=== PATIENT | female | born 1955 | race Caucasian/White ===

== ENCOUNTER 2022-09-08 08:28 | Outpatient (CLI) | payer MEDICARE, BC, SELFPAY ==
--- NOTE | 2022-09-08 09:30 | W.ANESCHARGE ---
Anesthesia Charges Start Date/Time Anesthesia Start Date: 09/08/22 Anesthesia Start Time: 09:45 Stop Date/Time Anesthesia Stop Date: 09/08/22 Anesthesia Stop Time: 10:15
--- NOTE | 2022-09-08 10:17 | W.ANESCHARGE ---
Anesthesia Charges Start Date/Time Anesthesia Start Date: 09/08/22 Anesthesia Start Time: 09:45 Stop Date/Time Anesthesia Stop Date: 09/08/22 Anesthesia Stop Time: 10:15
== END 2022-09-08 08:29 | disposition home or self-care (01) ==
LOC: OP CLINIC 08:29
PROVIDERS: PCP Student in an Organized Health Care Education/Training Program; Visit Provider Internal Medicine Gastroenterology
DX: Z12.11 Encounter for screening for malignant neoplasm of colon (principal); Z86.010 Personal history of colon polyps
CPT/HCPCS: 45378; 811; 812; J2405; J2704

== ENCOUNTER 2022-12-21 00:57 | Outpatient (CLI) | payer MEDICARE, BC, SELFPAY | END 2022-12-21 00:58 | disposition home or self-care (01) | LOC: AMB 12-26 10:20 | PROVIDERS: PCP Student in an Organized Health Care Education/Training Program; Visit Provider Family Medicine | DX: R53.1 Weakness (principal); K92.1 Melena; R55 Syncope and collapse | CPT/HCPCS: A0425; A0427 ==

== ENCOUNTER 2023-12-12 12:37 | Outpatient (CLI) | payer MEDICARE, BC, SELFPAY | END 2023-12-12 12:38 | disposition home or self-care (01) | LOC: AMB 12-15 02:30 | PROVIDERS: PCP Student in an Organized Health Care Education/Training Program; Visit Provider Emergency Medicine | DX: R42 Dizziness and giddiness (principal); R11.2 Nausea with vomiting, unspecified | CPT/HCPCS: A0425; A0427 ==

== ENCOUNTER 2023-12-12 13:28 | Emergency (ER) | payer MEDICARE, BC, SELFPAY ==
[2023-12-12] VITALS (13 sets, daily range): BP systolic 144–169; BP diastolic 72–88; PULSE 60–72; RESP 16–20; TEMP 35.8; O2SAT 97–100; BMI 36.6
--- NOTE | 2023-12-12 13:55 | ED.NAVMDI ---
HPI - Nausea/Vomiting/Diarrhea General Chief complaint: Nausea/Vomiting Stated complaint: Vomiting Time Seen by Provider: 12/12/23 13:29 History of Present Illness HPI Narrative: This 68-year-old female comes in by ambulance because of some nausea with vomiting and feeling lightheaded. These symptoms started today prior to arrival. She states that she felt this way last year when her hemoglobin was low apparently. She did have a colonoscopy at that time and also has had a hysterectomy. She states there was no evidence of colon cancer but did have abnormal cells in her uterus. She does have a history of diabetes. She does not report any pain. Related Data Home Medications ?Medication ?Instructions ?Recorded ?Confirmed amlodipine 5 mg tablet 5 mg PO DAILY 12/12/23 12/12/23 atorvastatin 20 mg tablet 20 mg PO DAILY 12/12/23 12/12/23 glipizide 10 mg tablet, extended 10 mg PO BID 12/12/23 12/12/23 release 24 hr insulin glargine 100 unit/mL (3 16 unit subcut BID 12/12/23 12/12/23 mL) subcutaneous pen (Lantus Solostar U-100 Insulin) iron 12/12/23 omeprazole 20 mg capsule,delayed 20 mg PO DAILY 12/12/23 12/12/23 release paroxetine HCl 10 mg tablet 10 mg PO DAILY 12/12/23 12/12/23 semaglutide 0.25 mg or 0.5 mg (2 0.5 mg subcut 12/12/23 mg/3 mL) subcutaneous pen injector (Ozempic) Previous Rx's ?Medication ?Instructions ?Recorded ondansetron HCl 4 mg tablet 4 mg PO Q6H #10 tabs 12/12/23 Allergies Allergy/AdvReac Type Severity Reaction Status Date / Time azithromycin Allergy Verified 09/08/22 11:08 fentanyl Allergy Verified 09/08/22 11:08 metformin Allergy Verified 09/08/22 11:08 aspirin AdvReac Verified 09/08/22 11:08 Review of Systems Status of ROS: Reports: 10 or more systems reviewed and unremarkable except as noted in History and below Narrative: Constitutional: No fevers, no weight gain or loss. Eyes: No discharge. No vision changes. HENT: No congestion, no sore throat, no ear pain. Cardiovascular: No chest pain, no palpitations. Respiratory: No shortness of breath, no wheezes, no cough. Gastrointestinal: No abdominal pain, no diarrhea. She reports nausea with vomiting. Genitourinary: No dysuria, no hematuria. Musculoskeletal: Normal range of motion. Skin: No rashes, no pruritis. Neurological: No dizziness, weakness, sensory change, speech change. Endo/Heme/Allergies: No bruising or bleeding. No polydipsia. Pysch: no suicidality, no anxiety, no insomnia. All other systems reviewed and are negative. Exam Narrative: Exam Narrative: Constitutional: Well-developed, well-nourished, no acute distress. HEENT: Normocephalic, atraumatic. Neck: Normal range of motion. Nontender. Supple. Heart: Regular. No murmurs. Normal rate. Intact distal pulses. Lungs: Clear to auscultation. No chest discomfort. No wheezes, rhonchi, or rales. Abdomen: Normal bowel sounds. Nontender. No rebound tenderness. Genitalia: Deferred. Back: No midline tenderness. Normal range of motion. Extremities: Normal range of motion. No injury. Skin: Intact. No rash. Warm. No erythema or pallor. Neurologic: No altered sensation. No weakness. Alert and oriented. Psychiatric: No suicidality. No anxiety or depression. No insomnia. Nursing notes and vitals signs are reviewed. Const: Vital Signs, click to edit/add: Vital Signs - 24 hr 12/12/23 13:34 12/12/23 14:31 12/12/23 14:32 Temperature 96.5 F L Pulse Rate 60 60 Pulse Rate [Pulse Oximeter] 67 Respiratory Rate 20 16 Blood Pressure 149/83 H Blood Pressure [Ri ght Upper Arm] 144/72 H Pulse Oximetry 98 98 98 Oxygen Delivery Me thod Room Air Room Air 12/12/23 14:45 12/12/23 15:00 12/12/23 15:01 Temperature Pulse Rate 63 65 64 Pulse Rate [Pulse Oximeter] Respiratory Rate 16 Blood Pressure 159/80 H Blood Pressure [Ri ght Upper Arm] Pulse Oximetry 98 100 99 Oxygen Delivery Me thod Room Air 12/12/23 15:15 12/12/23 15:30 12/12/23 15:31 Temperature Pulse Rate 62 68 67 Pulse Rate [Pulse Oximeter] Respiratory Rate 16 Blood Pressure 162/88 H Blood Pressure [Ri ght Upper Arm] Pulse Oximetry 98 98 99 Oxygen Delivery Me thod Room Air 12/12/23 15:45 12/12/23 16:00 12/12/23 16:02 Temperature Pulse Rate 72 70 71 Pulse Rate [Pulse Oximeter] Respiratory Rate 16 Blood Pressure 169/87 H Blood Pressure [Ri ght Upper Arm] Pulse Oximetry 99 97 99 Oxygen Delivery Me thod Room Air 12/12/23 16:15 Temperature Pulse Rate 68 Pulse Rate [Pulse Oximeter] Respiratory Rate Blood Pressure Blood Pressure [Ri t Upper Arm] Pulse Oximetry 98 Oxygen Delivery Me thod Course Vital Signs Vital signs: Initial Vital Signs Temperature 96.5 F L 12/12/23 13:34 Temperature Source Temporal Artery Scan 12/12/23 13:34 Pulse Rate 67 12/12/23 13:34 Respiratory Rate 20 12/12/23 13:34 Blood Pressure 144/72 H 12/12/23 13:34 Blood Pressure Mean 96 12/12/23 13:34 Blood Pressure Position Supine 12/12/23 13:34 Pulse Oximetry 98 12/12/23 13:34 Oxygen Delivery Method Room Air 12/12/23 13:34 Vital Signs Temperature 96.5 F L 12/12/23 13:34 Pulse Rate 67 12/12/23 13:34 Respiratory Rate 20 12/12/23 13:34 Blood Pressure 144/72 H 12/12/23 13:34 Pulse Oximetry 98 12/12/23 13:34 Oxygen Delivery Method Room Air 12/12/23 13:34 Temperature 96.5 F L 12/12/23 13:34 Pulse Rate 68 12/12/23 16:15 Respiratory Rate 16 12/12/23 16:02 Blood Pressure 169/87 H 12/12/23 16:02 Pulse Oximetry 98 12/12/23 16:15 Oxygen Delivery Method Room Air 12/12/23 16:02 Medications Administered Medications: Discontinued Medications Generic Name Dose Route Start Last Admin Trade Name Freq PRN Reason Stop Dose Admin Sodium Chloride 1,000 mls @ 1,000 mls/hr 12/12/23 14:00 12/12/23 15:20 0.9 % Sodium Chloride 1000 Ml IV 12/12/23 14:59 Infused .Q1H [facility] MDM - Nausea/Vomiting/Diarrhea MDM Narrative Medical decision making narrative: This patient comes in with report of some lightheadedness with nausea and vomiting. An IV was established where she received a L of normal saline intravenously. She had received 8 mg of Zofran intravenously prior to arrival. She states that she is feeling significantly better with these treatments. Labs are acquired and these returned with reassuring findings. Her hemoglobin is in normal range. Her white count is around 11,000. Her vital signs have remained stable and normal. Upon completing the IV fluids the patient was able to get up and ambulate and is okay to be discharged home. Lab Data Labs: Lab Results 12/12/23 Range/Units 14:05 WBC 11.71 H (4.50-11.00) K/uL RBC 4.57 (4.00-5.20) m/uL Hgb 13.6 (12.0-16.0) gm/dL Hct 41.9 (33.0-51.0) % MCV 92 (80-100) fL MCH 30 (26-34) pg MCHC 33 (32-36) gm/dL RDW Coeff of Chon 13.1 (11.5-15.5) % Plt Count 267 (140-440) K/uL Neut % (Auto) 78.8 H (42.0-72.0) % Lymph % (Auto) 13.7 L (20-44) % Haines % (Auto) 6.0 (0.0-11.0) % Eos % (Auto) 0.9 (0.0-7.0) % Baso % (Auto) 0.3 (0.0-3.0) % Neut # (Auto) 9.20 H (1.7-7.0) K/uL Lymph # (Auto) 1.60 (0.90-2.90) K/uL Haines # (Auto) 0.70 (0.00-0.90) K/UL Eos # (Auto) 0.10 (0.00-0.50) K/uL Baso # (Auto) 0.00 (0.00-0.30) K/uL Abs Immat Gran (auto) 0.00 (0.00-0.30) K/uL Imm/Tot Granulo (auto) 0.3 % Sodium 138 (135-149) mmol/L Potassium 4.4 (3.6-5.1) mmol/L Chloride 106 (96-114) mmol/L Carbon Dioxide 24 (20-32) mmol/L Anion Gap 8 (7-15) mEq/L BUN 16 (7-30) mg/dL Creatinine 0.7 (0.5-1.5) mg/dL Estimated Creat Clear 41.40 Estimated GFR 93 ml/min Glucose 184 H (60-115) mg/dL Calcium 9.2 (8.4-10.6) mg/dL POC Troponin I 0.00 L (0.01-0.04) ng/ml ECG Data Attestation: I personally reviewed and interpreted this ECG as follows: Interpretation: Normal sinus rhythm. Rate is 63 beats per minute. There are no ST or T-wave abnormalities. Discharge Plan Discharge Clinical Impression: Gastroenteritis Patient Disposition: Home w/ Parent or Adult Condition: Improved Additional Instructions: Take medicine for nausea as needed and directed. Increase diet and activity as tolerated. Follow up with MD or return if worsening. Prescriptions: New ondansetron HCl 4 mg tablet 4 mg PO Q6H Qty: 10 0RF No Action paroxetine HCl 10 mg tablet 10 mg PO DAILY atorvastatin 20 mg tablet 20 mg PO DAILY glipizide 10 mg tablet extended release 24hr 10 mg PO BID amlodipine 5 mg tablet 5 mg PO DAILY omeprazole 20 mg capsule,delayed release(DR/EC) 20 mg PO DAILY insulin glargine [Lantus Solostar U-100 Insulin] 100 unit/mL (3 mL) insulin pen 16 unit subcut BID Ozempic 0.25 mg or 0.5 mg (2 mg/3 mL) pen injector 0.5 mg subcut iron Follow Up/Referrals: Lyndsay Holland PA-C [Primary Care Provider] - [facility]one [facility]
[2023-12-12 14:10] LABS: Basophils Percent Auto 0.3 % (0.0-3.0); Eosinophils Percent Auto 0.9 % (0.0-7.0); Hematocrit 41.9 % (33.0-51.0); Hemoglobin* 13.6 gm/dL (12.0-16.0); Immature Granulocytes Pct Auto 0.3 %; Lymphocytes Percent Auto 13.7 % (20-44); Mean Corpuscular HGB Conc 33 gm/dL (32-36); Mean Corpuscular Hemoglobin 30 pg (26-34); Mean Corpuscular Volume 92 fL (80-100); Neutrophils Percent Auto 78.8 % (42.0-72.0); Platelet Count* 267 K/uL (140-440); RDW Coefficient of Variation % 13.1 % (11.5-15.5); Red Blood Count 4.57 m/uL (4.00-5.20); White Blood Count* 11.71 K/uL (4.50-11.00)
[2023-12-12 14:15] LABS: Slide Review Reflex No
[2023-12-12] MEDS: 0.9 % SODIUM CHLORIDE 1000 ml 1,000 ML IV (14:20)
[2023-12-12 14:23] LABS: Chloride* 106 mmol/L (96-114); Sodium* 138 mmol/L (135-149)
[2023-12-12 14:24] LABS: Potassium* 4.4 mmol/L (3.6-5.1)
[2023-12-12 14:26] LABS: Creatinine* 0.7 mg/dL (0.5-1.5); Estimated Glomerular Filt Rate 93 ml/min
[2023-12-12 14:27] LABS: Anion Gap 8 mEq/L (7-15); Blood Urea Nitrogen* 16 mg/dL (7-30); Calcium* 9.2 mg/dL (8.4-10.6); Carbon Dioxide* 24 mmol/L (20-32); Glucose* 184 mg/dL (60-115)
== END 2023-12-12 16:47 | disposition home or self-care (01) ==
PROVIDERS: Emergency Provider Emergency Medicine Emergency Medical Services; PCP Student in an Organized Health Care Education/Training Program
DX: K52.9 Noninfective gastroenteritis and colitis, unspecified (principal)
CPT/HCPCS: 36415; 80048; 84484; 85025; 93005; 96360; 99284; J7030